=== PATIENT | female | born 1985 | race Caucasian/White ===

== ENCOUNTER 2020-02-24 18:57 | Observation (INO) ==
[2020-02-24] MEDS ORDERED: IOPAMIDOL 100 ML BOTTLE IV ONE (18:58)
[2020-02-24] MEDS ORDERED: 0.9 % SODIUM CHLORIDE 1,000 ML IV ONE (19:27)
[2020-02-24] MEDS ORDERED: PROCHLORPERAZINE 10 MG/2 ML VIAL IV ONE (19:27)
[2020-02-24] MEDS ORDERED: PANTOPRAZOLE 40 MG VIAL IV ONE (19:27)
[2020-02-24] MEDS ORDERED: diphenhydrAMINE 50 MG/ML VIAL IV ONE (19:27)
--- NOTE | 2020-02-24 19:48 | Emergency Department Note ---
Abdominal Pain HPI General Chief Complaint: Abdominal Pain Stated Complaint: Abd pain Time Seen by Provider: 02/24/20 19:06 Source: family Mode of arrival: ambulatory Limitations: no limitations History of Present Illness HPI Narrative: Narrative: 34-year old patient presenting to the [facility] emergency department with a chief complaint of abdominal pain. Patient reports the pain is acute. Patient has had symptoms for several hours/days. Patient noting pain is sharp stabbing midepigastric. Patient reporting pain is moderate. Patient with exacerbating factors of food may be setting this off. Patient with ameliorating factors of pain medication does help. Patient with associated symptoms of nausea and vomiting. Patient without associated symptoms of diarrhea, decreased appetite, fever, blood in stool, hematemesis, constipation, dysuria, frequency, hematuria, weight loss, cough, shortness of breath, orthopnea, exertional component. Related Data Home Medications Medication Instructions Recorded Confirmed fluticasone propionate 50 1 spray INTRANASAL BID g 01/12/15 01/19/20 mcg/actuation nasal spray,suspension acetaminophen 500 mg tablet 1,000 mg PO Q6H PRN 11/07/15 01/19/20 methocarbamol 750 mg PO QHS PRN 12/28/19 01/19/20 progesterone 200 mg PO DAILY 12/28/19 01/19/20 Allergies Allergy/AdvReac Type Severity Reaction Status Date / Time No Known Drug Allergies Allergy Verified 01/19/20 15:30 Review of Systems ROS ROS Narrative: Narrative: All systems ED: reviewed and negative except as stated. PFSH Narrative Patient History Narrative: Narrative: Medical/Surgical/Family History All Active Problems (Updated 02/25/20 @ 00:34 by Leoncio Saenz MD) Abdominal pain (Acute) Cholelithiasis (Acute) No pertinent past surgical history (Chronic) GERD (gastroesophageal reflux disease) (Chronic) Chronic pain (Chronic) Non-restorative sleep (Chronic) Migraine without aura (Chronic) Occipital neuralgia (Chronic) Abdominal pain (Acute) Migraine (Chronic) Urticaria, idiopathic (Chronic 10/30/13) Migraine (Chronic) Headache (Chronic 10/30/13) Cervical dysplasia (Chronic) Allergic rhinitis (Chronic) Medical History (Updated 02/25/20 @ 00:34 by Leoncio Saenz MD) Allergic rhinitis (Chronic) Cervical dysplasia (Chronic) 2009 During her , with a 6 week check as positive and a 6 month check which was negative Chronic pain (Chronic) Depressive disorder (Resolved 06/28/11) resolved since school is completed GERD (gastroesophageal reflux disease) (Chronic) Headache (Chronic 10/30/13) recurrent headaches; begin in her upper back and radiate to occipital, temporal area on the left, tend to last for 2-3 days, occur with menses Migraine (Chronic) Migraine (Chronic) Migraine without aura (Chronic) Non-restorative sleep (Chronic) Occipital neuralgia (Chronic) Urticaria, idiopathic (Chronic 10/30/13) with pruitis Surgical History (Updated 02/15/20 @ 09:17 by Alejandra Jimenez) No pertinent past surgical history (Chronic) Family History Father Asthma Essential hypertension, Onset Age: 48 Maternal Aunt Malignant neoplasm of breast, Onset Age: 49 Mother Irritable bowel syndrome Social History Smoking Status: Never smoker Alcohol Intake Frequency: holiday/special occasion only Substance Use: does not use Exam Narrative Narrative: Vital signs are assessed for evidence of hemodynamic instability. General: Alert, interactive, appropriate Head: Atraumatic, normocephalic Eyes: Extraocular movements intact, sclera anicteric, no conjunctival injection Ears: Pinnae normal, no discharge Mouth: Oral mucosa moist, no acute swelling or evidence of infection Nares: No nasal discharge, patent bilaterally Neck: Trachea midline, full range of motion Chest: Symmetrical chest wall rise, breathing normally; nonlabored respirations Abdomen: Patient primarily tenderness to the midepigastric, patient without exam suggestive of peritonitis, nondistended, normoactive bowel sounds, no masses, no hepatosplenomegaly, no rebound, and no guarding Cardiovascular: Patient with excellent perfusion to the extremities; without tachycardia/bradycardia Skin: Patient without area of erythema, patient is without rash, no ascending lymphangitis or lymphadenopathy Extremities: Full range of motion joints, no obvious deformities Neuro: Alert, oriented x3, cranial nerves II through XII grossly intact, patient without lateralizing findings such as weakness, or abnormal reflexes Psychiatric: Normal affect, normal mood General Limitations: no limitations Course Vital Signs Vital signs: Vital Signs Temperature 97.8 F 02/24/20 19:06 Pulse Rate 94 H 02/24/20 19:06 Respiratory Rate 18 02/24/20 19:06 Blood Pressure 136/77 10/14/20 19:06 Pulse Oximetry (%) 98 02/24/20 19:06 Temperature 97.8 F 02/24/20 19:06 Pulse Rate 73 02/25/20 00:06 Respiratory Rate 18 02/24/20 19:06 Blood Pressure 107/61 02/25/20 00:02 Pulse Oximetry (%) 96 02/25/20 00:06 MDM MDM Narrative Medical decision making narrative: Narrative: Initial work-up for this issue included consideration for the following laboratory evaluation CBC, CMP, lipase, as well as imaging with ultrasound. On previous visit patient was having predominantly some mild left upper quadrant pain and now is having more midepigastric pain at this point time. Percent de monstrating multiple small stones however no acute obstruction, bile duct at 6 mm currently. Differential diagnosis considered included: pancreatitis, peptic ulcer disease, GERD, gastritis, functional dyspepsia, gastroparesis, cyclical vomiting syndrome, cholelithiasis, common bile duct stone, gallstone pancreatitis CT scan abdomen demonstrates a 9 mm common bile duct. Patient without fever sig ns or symptoms of sepsis white count minimal elevation 11.3 LFTs diffusely elevated consistent with cholelithiasis possible obstructing stone in common bile duct. Discussed the case with GI at [facility] and they felt patient could reasonably be done as cholecystectomy with intraoperative cholangiogram and ERCP if necessary. After this discussion I realize Dr. Sawyer could potentially do this case if he is willing to do the additional studies. Here at [facility] we do have MRCP available and will be able to determine if there is indeed stones in the common bile duct. MRCP is ordered along with admit obs orders to the hospital. If MRCP is negative for stones Dr. Sawyer will very likely proceed with cholecystectomy. This determination is obviously subject to potential change course or other findings. Lab Data Result diagrams: 02/24/20 21:08 02/24/20 21:08 Labs: Lab Results 02/24/20 02/24/20 Range/Units 21:08 21:08 WBC 11.3 H (4.5-11.0) K/mcL RBC 5.27 H (4.00-5.20) M/mcL Hgb 15.1 H (12.0-15.0) g/dL Hct 46.5 (36.0-48.0) % MCV 88.2 (80.0-100.0) fL MCH 28.7 (26.0-34.0) pg MCHC 32.5 (31.0-36.0) g/dL RDW 12.4 (11.5-14.5) % Plt Count 364 (140-440) K/mcL MPV 9.0 (7.4-10.4) fL Neut % (Auto) 69.6 (38.0-78.0) % Lymph % (Auto) 18.5 (15.0-49.0) % Steele % (Auto) 9.0 (1.0-12.0) % Eos % (Auto) 2.5 (0.0-7.0) % Baso % (Auto) 0.4 (0.0-2.0) % Lymph # (Auto) 2.08 (1.50-4.80) K/mcL Steele # (Auto) 1.01 H (0.10-0.90) K/mcL Eos # (Auto) 0.28 (0.00-0.70) K/mcL Baso # (Auto) 0.05 (0.00-0.20) K/mcL Absolute Neutrophils 7.84 (1.80-8.00) K/mcL Sodium 138 (133-145) mmol/L Potassium 3.5 (3.3-5.1) mmol/L Chloride 101 (96-108) mmol/L Carbon Dioxide 24 (22-30) mmol/L Anion Gap 13.0 (8.0-16.0) BUN 5 L (6-20) mg/dL Creatinine 0.9 (0.6-1.1) mg/dL GFR Calculation 83 Glucose 108 H (70-105) mg/dL Calcium 9.6 (8.6-10.4) mg/dL Total Bilirubin 4.3 H (0.1-1.0) mg/dL AST 351 H (<32) U/L ALT 616 H (<40) U/L Alkaline Phosphatase 216 H (39-117) U/L Total Protein 7.7 (5.9-8.4) gm/dL Albumin 4.7 (3.2-5.2) gm/dL Globulin 3.0 (2.2-3.7) gm/dL Albumin/Globulin Ratio 1.6 (1.0-2.3) Lipase 24 (7-60) U/L Discharge Plan Patient/Caregiver Discharge Instructions Pt seen by DEMOGRAPHER/PA only: No Clinical Impression: Abdominal pain, Cholelithiasis Instructions: Abdominal Pain (ED) Patient Disposition: Xfer As Outpt/Obs ([facility]) Condition: Good Follow up with: Ninoska Coyle DO [Primary Care Provider] - Prescriptions: No Action fluticasone propionate 50 mcg/actuation spray,suspension 1 spray INTRANASAL BID RF: 0 acetaminophen [Tylenol Extra Strength] 500 mg tablet 1,000 mg PO Q6H PRN (Reason: Pain) RF: 0 progesterone 200 mg PO DAILY RF: 0 methocarbamol 750 mg tablet 750 mg PO QHS PRN (Reason: Migraine Headache) RF: 0
[2020-02-24] MEDS: morphine 4 MG/ML VIAL IV PRN (20:16)
[2020-02-24 22:36] LABS: ALT/SGPT 616 U/L (<40); AST/SGOT 351 U/L (<32); Albumin 4.7 gm/dL (3.2-5.2); Albumin/Globulin Ratio 1.6 (1.0-2.3); Alkaline Phosphatase 216 U/L (39-117); Basophils # (Auto) 0.05 K/mcL (0.00-0.20); Basophils % (Auto) 0.4 % (0.0-2.0); Bilirubin,Total 4.3 mg/dL (0.1-1.0); Blood Urea Nitrogen 5 mg/dL (6-20); Calcium 9.6 mg/dL (8.6-10.4); Carbon Dioxide 24 mmol/L (22-30); Chloride 101 mmol/L (96-108); Eosinophils # (Auto) 0.28 K/mcL (0.00-0.70); Eosinophils % (Auto) 2.5 % (0.0-7.0); Glomerular Filtration Rate 83; Glucose 108 mg/dL (70-105); Hematocrit 46.5 % (36.0-48.0); Hemoglobin 15.1 g/dL (12.0-15.0); Lymphocytes # (Auto) 2.08 K/mcL (1.50-4.80); Lymphocytes % (Auto) 18.5 % (15.0-49.0); Mean Cell Volume 88.2 fL (80.0-100.0); Mean Corpuscular HGB Conc 32.5 g/dL (31.0-36.0); Monocytes # (Auto) 1.01 K/mcL (0.10-0.90); Neutrophils % (Auto) 69.6 % (38.0-78.0); Platelet Count 364 K/mcL (140-440); RBC 5.27 M/mcL (4.00-5.20); Red Cell Distribution Width 12.4 % (11.5-14.5); WBC 11.3 K/mcL (4.5-11.0)
[2020-02-25] MEDS ORDERED: ONDANSETRON 4 MG/2 ML VIAL IV PRN (00:28)
[2020-02-25] MEDS ORDERED: HYDROmorphone 1 MG/ML SYRINGE IV PRN (00:28)
[2020-02-25] MEDS: morphine 4 MG/ML VIAL IV PRN (00:51)
--- NOTE | 2020-02-25 02:45 | Ultrasound Report ---
CLINICAL INFORMATION: gallbladder COMPARISON: None. FINDINGS: Multiple small stones are present within the gallbladder. Gallbladder wall is normal thickness (2 mm) and there is no focal tenderness to suggest cholecystitis. Common bile duct is normal caliber: 6 mm. The liver, pancreas and right kidney are normal in size and echotexture. No free fluid IMPRESSION: Cholelithiasis Interpreted and Authenticated by: Riaz Nixon 02/25/20
--- NOTE | 2020-02-25 04:39 | Cat Scan Report ---
CLINICAL INFORMATION: Abdominal pain COMPARISON: None. TECHNIQUE: Following enteric contrast, 80 cc of Isovue-370 were injected intravenously, and 60 seconds later, 0.625 mm helical slices were obtained from the mid heart through the subtrochanteric regions. Following reconstruction, 2.5 mm sagittal, coronal and axial reformatted images were processed and reviewed at bone, lung and soft tissue windows. Five minutes later, 0.625 mm helical slices were obtained from the mid heart through the kidneys and viewed at soft tissue windows.The exam was performed using radiation dose optimization techniques including, but not limited to, automated exposure control, adjustment of the mA and/or kV according to patient size and use of iterative reconstruction technique. FINDINGS: The lung bases show no abnormality - no effusion. The visualized heart is unremarkable. Abdominal images show minimal fatty change within the liver, but no focal hepatic lesion. The gallbladder is slightly distended. There is equivocal pericholecystic fluid, but no definite wall thickening or stones. The common bile duct is mildly dilated - 7 mm. No intraductal stone appreciated. The pancreas, both kidneys, right adrenal gland, spleen and aorta, including aortic branches, are normal in size and variation attenuation without focal lesion. A 13 mm nodule in the left adrenal gland measures 102 Hounsfield units. There is no free air, free fluid or adenopathy. Pelvic images show the uterus is anteflexed and moderately enlarged - 10 x 3.7 cm. Myometrial attenuation is inhomogeneous. Both ovaries are normal. Urinary bladder is unremarkable. The stomach, small bowel and appendix are normal. Sigmoid diverticulosis appreciated, but no evidence of diverticulitis. The remaining colon is normal. Bone windows show no osseous abnormality IMPRESSION: 1. Mild distention of the gallbladder with equivocal pericholecystic fluid. Suggest limited gallbladder ultrasound. No stones identified. Equivocal dilatation of the common bile duct noted - 9 mm. No intraductal stones. 2. Sigmoid diverticulosis, but no evidence of diverticulitis. 3. Moderate uterine enlargement with inhomogeneous myometrial echotexture suggesting adenomyosis 4. 13 mm hyperdense left adrenal nodule. It is almost certainly a benign adenoma Interpreted and Authenticated by: Riaz Nixon 02/25/20
[2020-02-25] MEDS: 0.9 % SODIUM CHLORIDE 10 ML SYRINGE IV SCH ×2 (07:45→14:28)
[2020-02-25] MEDS ORDERED: DOCUSATE SODIUM 100 MG CAPSULE PO SCH (09:00)
--- NOTE | 2020-02-25 12:02 | Magnetic Resonance Report ---
CLINICAL INFORMATION: Right upper quadrant pain. Possible cholecystitis on recent CT COMPARISON: Abdomen and pelvic CT 02/24/2020. TECHNIQUE: MRCP was performed using 3D FRFSE respiratory triggered and single-shot FSE thick slab technique. Axial T2 SSFSE and coronal SSFSE images were obtained through the upper abdomen as well. FINDINGS: There are multiple stones layering dependently within the gallbladder. Gallbladder wall is normal thickness and there is no pericholecystic fluid to suggest cholecystitis. The intrahepatic common hepatic and common bile ducts are moderately dilated: CBD 9 mm. A 5 mm stone in the ampullary region of the common bile duct, results in duct obstruction. The pancreas is normal size configuration and signal intensity no evidence of inflammation. The expected normal caliber - 2 mm. The liver, both kidneys, adrenal glands, spleen and aorta are normal. No free fluid IMPRESSION: 1. Cholelithiasis. 2. 5 mm stone in the ampullary region of the intrapancreatic common bile duct resulting in moderate common bile duct dilatation. Interpreted and Authenticated by: Riaz Nixon 02/25/20
[2020-02-25] MEDS ORDERED: 0.9 % SODIUM CHLORIDE 1,000 ML IV SCH (12:10)
--- NOTE | 2020-02-25 12:51 | General Surg History&Physical ---
HPI History of Present Illness Patient information: Note initiated : 02/25/20 at 12:51 pm Service Date, if different from initiated Date: [] Patient: Vale Whiteside a 34 y/o F admitted on 02/25/20 for Abd pain. Chief Complaint: [] Chief complaint: recurrent abdominal pain History of present illness: Ms. Whiteside is a 34 year old F admitted with gallbladder disease. The patient initially started having symptoms 2 months ago. She had an acute attack that resolves spontaneously. She had onset of severe pain on Saturday of this week. The pain was in her epigastrium and radiated through to her back. It became more severe over the past 2 days. On yesterday the pain became extremely severe and she was seen in the emergency room. She was noted to have elevated bilirubin ALT, AST, alk phosphatase and bilirubin. Ultrasound shows multiple gallstones with the duct measuring 9 mm. MRCP done today shows a 5 mm stone in the distal duct. Patient will need to have ERCP prior to cholecystectomy. The arrangement with [facility] is that we have to totally transfer the patient to their care .she will be discharged in transfer to them for definitive care. She will need to have ERCP followed by cholecystectomy. Review of Systems All systems: reviewed and no additional remarkable complaints except as stated Neurological Neurological: Present headache(s) (migraine type headaches) PFSH PFSH All Active Problems (Updated 02/25/20 @ 12:58 by Ricky Sawyer MD) Choledocholithiasis (Acute) Cholelithiasis and cholecystitis without obstruction (Acute) Abdominal pain (Acute) Cholelithiasis (Acute) No pertinent past surgical history (Chronic) GERD (gastroesophageal reflux disease) (Chronic) Chronic pain (Chronic) Non-restorative sleep (Chronic) Migraine without aura (Chronic) Occipital neuralgia (Chronic) Abdominal pain (Acute) Migraine (Chronic) Urticaria, idiopathic (Chronic 10/30/13) Migraine (Chronic) Headache (Chronic 10/30/13) Cervical dysplasia (Chronic) Allergic rhinitis (Chronic) Medical History Allergic rhinitis (Chronic) Cervical dysplasia (Chronic) 2009 During her , with a 6 week check as positive and a 6 month check which was negative Chronic pain (Chronic) Depressive disorder (Resolved 06/28/11) resolved since school is completed GERD (gastroesophageal reflux disease) (Chronic) Headache (Chronic 10/30/13) recurrent headaches; begin in her upper back and radiate to occipital, temporal area on the left, tend to last for 2-3 days, occur with menses Migraine (Chronic) Migraine (Chronic) Migraine without aura (Chronic) Non-restorative sleep (Chronic) Occipital neuralgia (Chronic) Urticaria, idiopathic (Chronic 10/30/13) with pruitis Surgical History No pertinent past surgical history (Chronic) Family History Father Asthma Essential hypertension, Onset Age: 48 Maternal Aunt Malignant neoplasm of breast, Onset Age: 49 Mother Irritable bowel syndrome Social History household members: family housing: house marital status: education level: college occupational status: employed 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 pets and animals: Yes pets and animals: cat(s) and dog(s) sexually active: Yes well-balanced diet: about half the time during the past year weight has: remained stable physical activity: none smoking status: Never smoker alcohol intake frequency: holiday/special occasion only substance use type: does not use duy/pentecostalism: Bahai seatbelt use: always working smoke detector in home: Yes MEDS/ALLERGIES Home Medications and Allergies Home Medications Medication Instructions Recorded Confirmed Type methocarbamol 750 mg PO QHS PRN 12/28/19 02/25/20 History progesterone 200 mg PO DAILY 12/28/19 02/25/20 History Allergies Allergy/AdvReac Type Severity Reaction Status Date / Time No Known Drug Allergies Allergy Verified 01/19/20 15:30 Physical Examination Vital Signs Vital signs: Temp Pulse Resp BP Pulse Ox 96.5 F L 70 12 95/68 97 02/25/20 07:58 02/25/20 07:58 02/25/20 07:58 02/25/20 07:58 02/25/20 07:58 General physical appearance General physical exam: well developed, well nourished, no distress and no pain Eyes Eye exam: PERRL, normal ocular movement and icteric (minimal clinical icterus) ENT ENT exam: no hearing loss Head Head exam IM: Present atraumatic, normal inspection and normocephalic Neck Neck exam: no masses, no bruits, trachea midline and no lymphadenopathy Cardiovascular Cardiovascular exam IM: Present normal rate and rhythm, RRR, +S1 and +S2; Absent JVD Respiratory Respiratory exam: normal expansion, normal respiratory effort, clear to percus mikhail and clear to auscultation Abdomen Abdomen: Present soft, non tender and bowel sounds (normoactive bowel sounds) Integumentary Integumentary: Present no rash, no growths and no abnormal pigmentation Neurologic Neurologic: Present normal coordination and normal sensation Musculoskeletal Musculoskeletal: Present normal gait and normal posture Psychiatric Psychiatric: Present oriented to time, oriented to person, oriented to place, speech is normal and memory intact Results Labs Result diagrams: 02/24/20 21:08 02/24/20 21:08 Labs: Abnormal lab results 02/24/20 02/24/20 Range/Units 21:08 21:08 WBC 11.3 H (4.5-11.0) K/mcL RBC 5.27 H (4.00-5.20) M/mcL Hgb 15.1 H (12.0-15.0) g/dL Phelps # (Auto) 1.01 H (0.10-0.90) K/mcL BUN 5 L (6-20) mg/dL Glucose 108 H (70-105) mg/dL Total Bilirubin 4.3 H (0.1-1.0) mg/dL AST 351 H (<32) U/L ALT 616 H (<40) U/L Alkaline Phosphatase 216 H (39-117) U/L Diabetes panel 02/24/20 Range/Units 21:08 Sodium 138 (133-145) mmol/L Potassium 3.5 (3.3-5.1) mmol/L Chloride 101 (96-108) mmol/L Carbon Dioxide 24 (22-30) mmol/L BUN 5 L (6-20) mg/dL Creatinine 0.9 (0.6-1.1) mg/dL Glucose 108 H (70-105) mg/dL Calcium 9.6 (8.6-10.4) mg/dL AST 351 H (<32) U/L ALT 616 H (<40) U/L Alkaline Phosphatase 216 H (39-117) U/L Total Protein 7.7 (5.9-8.4) gm/dL Albumin 4.7 (3.2-5.2) gm/dL Calcium panel 02/24/20 Range/Units 21:08 Calcium 9.6 (8.6-10.4) mg/dL Albumin 4.7 (3.2-5.2) gm/dL Pituitary panel 02/24/20 Range/Units 21:08 Sodium 138 (133-145) mmol/L Potassium 3.5 (3.3-5.1) mmol/L Chloride 101 (96-108) mmol/L Carbon Dioxide 24 (22-30) mmol/L BUN 5 L (6-20) mg/dL Creatinine 0.9 (0.6-1.1) mg/dL Glucose 108 H (70-105) mg/dL Calcium 9.6 (8.6-10.4) mg/dL Adrenal panel 02/24/20 Range/Units 21:08 Sodium 138 (133-145) mmol/L Potassium 3.5 (3.3-5.1) mmol/L Chloride 101 (96-108) mmol/L Carbon Dioxide 24 (22-30) mmol/L BUN 5 L (6-20) mg/dL Creatinine 0.9 (0.6-1.1) mg/dL Glucose 108 H (70-105) mg/dL Calcium 9.6 (8.6-10.4) mg/dL Total Bilirubin 4.3 H (0.1-1.0) mg/dL AST 351 H (<32) U/L ALT 616 H (<40) U/L Alkaline Phosphatase 216 H (39-117) U/L Total Protein 7.7 (5.9-8.4) gm/dL Albumin 4.7 (3.2-5.2) gm/dL All other labs normal. A/P Assessment and plan (1) Cholelithiasis and cholecystitis without obstruction: Status: Acute Qualifiers: Cholelithiasis location: gallbladder Cholecystitis acuity: acute and chronic Qualified Code(s): K80.12 - Calculus of gallbladder with acute and chronic cholecystitis without obstruction (2) Choledocholithiasis: Status: Acute Narrative A/P Narrative: patient will be continued on antibiotics and hydration. Arrangements will be made for her to be transferred for ERCP and probable cholecystectomy. Time Spent With Patient Time: Total time spent is greater than 50% in coordination of care (as documented) at patient's floor/unit and/or counseling patient:
[2020-02-25] MEDS ORDERED: PIPERACILLIN SODIUM/TAZOBACTAM 3.375 GM in DEXTROSE 5% IN WATER 50 ML IV SCH (14:00)
[2020-02-25] MEDS ORDERED: SENNOSIDES 1 TABLET PO SCH (21:00)
== END 2020-02-25 15:53 | disposition short-term general hospital (02) ==
LOC: MEDSUR 18:57 → ED 18:57 → MEDSUR 02-25 01:09
PROVIDERS: ADMIT Family Medicine Adult Medicine; ATTEND Family Medicine Adult Medicine